=== PATIENT | female | born 1995 | race African-American/Black ===

== ENCOUNTER 2016-09-27 10:41 | Emergency (ER) | payer MEDICAID ==
[~2016-09-27] VITALS: Ht 162.6 cm; Wt 77.0 kg
[2016-09-27 11:52] VITALS: BP 136/73
[2016-09-27] MEDS ORDERED: PROCHLORPERAZINE MALEATE 10MG TABLET PO ONE (12:00)
[2016-09-27] MEDS ORDERED: SUMATRIPTAN SUCCINATE 6MG/0.5ML VIAL SUBCUT ONE (12:00)
[2016-09-27 12:27] LABS: BASOPHILS % 0.4 % (0.0-2.0); EOSINOPHILS % 0.3 % (0.0-5.0); HEMATOCRIT. 37.9 % (36.0-48.0); HEMOGLOBIN. 12.6 g/dL (12.0-16.0); LYMPHOCYTES % 24.6 % (20.0-50.0); MEAN CORPUSCULAR HEMOGLOBIN 31.1 pg (28.0-32.0); MEAN CORPUSCULAR VOLUME 93.3 fL (81.0-99.0); MEAN PLATELET VOLUME 9.1 fl (7.4-10.4); MONOCYTES % 13.8 % (2.0-8.0); NEUTROPHILS % 60.9 % (40.0-76.0); PLATELET 205 x1000/uL (130-400); RED BLOOD CELL COUNT 4.07 mill/uL (4.2-5.4); RED CELL DISTRIBUTION WIDTH 13.6 % (11.6-14.6)
[2016-09-27 12:39] LABS: CARBON DIOXIDE 26 mEq/L (21-32); CHLORIDE 105 mEq/L (98-107)
[2016-09-27] MEDS ORDERED: ACETAMINOPHEN 500MG TABLET PO ONE (13:00)
== END 2016-09-27 13:54 | disposition home or self-care (01) ==
LOC: ER 13:01
DX: G44.209 Tension-type headache, unspecified, not intractable (principal)
CPT/HCPCS: 36415; 80048; 85025; 96372; 99284; J3030; Z7610; Q0164